=== PATIENT | male | born 1980 | race Caucasian/White ===

== ENCOUNTER 2017-11-02 04:05 | Emergency (ER) | payer OTHER ==
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
[2017-11-02 04:33] LABS: PLATELET COUNT 289 10^3/uL (150-400)
[2017-11-02] MEDS ORDERED: IOPAMIDOL (ISOVUE-300) 100 ML BTL ONE (04:36)
[2017-11-02 05:46] VITALS: BP 132/78
== END 2017-11-02 05:45 | disposition home or self-care (01) ==
DX: F10.920 Alcohol use, unspecified with intoxication, uncomplicated (principal); Z02.89 Encounter for other administrative examinations; V89.2XXA Person injured in unspecified motor-vehicle accident, traffic, initial encounter; Y92.410 Unspecified street and highway as the place of occurrence of the external cause
CPT/HCPCS: G0480; Q9967